=== PATIENT | female | born 1950 | race Caucasian/White ===

== ENCOUNTER 2021-02-26 15:38 | Emergency (ER) | payer MEDICARE, MEDICAID ==
[~2021-02-26] VITALS: Ht 160 cm; Wt 77.3 kg
[~2021-02-26 15:38] MED LIST: ALBU18HF2 INH; BUDE180A INH; BUSP10TA3 PO; CETI10TA15 PO; FLUO-213 PO; MECL-159 PO; NICO-687 TD; ONDA4TAB6 PO; SIMV-45 PO
[2021-02-26] MEDS ORDERED: predniSONE 20 mg tablet PO SCH ×2 (15:49→15:50)
[2021-02-26] MEDS ORDERED: prednisone 10mg tablet PO SCH (15:50)
--- NOTE | 2021-02-26 15:54 | NUR ---
pt to room, assumed care. pt receiving breathing tx
[2021-02-26 16:01] LABS: BASOPHILS % (AUTO) 0.8 % (0-1); EOSINOPHILS # (AUTO) 0.2 X10'3 (0-0.9); EOSINOPHILS % (AUTO) 2.5 % (0-6); HEMATOCRIT 35.5 % (35.0-45.0); HEMOGLOBIN 11.5 g/dl (12.0-16.0); LYMPHOCYTES # (AUTO) 1.2 X10'3 (1.1-4.8); LYMPHOCYTES % (AUTO) 17.6 % (21-51); MEAN CORPUSCULAR HGB CONC 32.3 g/dL (33.0-36.5); MEAN CORPUSCULAR VOLUME 86.6 FL (78-98); MEAN PLATELET VOLUME 8.7 FL (7.4-10.4); MONOCYTES # (AUTO) 0.7 X10'3 (0-0.9); MONOCYTES % (AUTO) 10.9 % (2-12); NEUTROPHILS # (AUTO) 4.5 X10'3 (1.8-7.7); NEUTROPHILS % (AUTO) 68.2 % (42-75); PLATELET COUNT 217 X10'3 (140-440); RED CELL DISTRIBUTION WIDTH 17.6 % (11.5-14.5); WHITE BLOOD COUNT 6.6 X10'3 (4.5-11.0)
[2021-02-26 16:14] LABS: ALBUMIN 3.1 G/DL (3.4-5.0); ANION GAP 9 (8-16); BLOOD UREA NITROGEN 23 MG/DL (7-18); BUN/CREATININE RATIO 16.3 (6.6-38.0); CALCIUM 8.2 MG/DL (8.5-10.1); CHLORIDE 108 MMOL/L (99-107); CREATININE 1.41 MG/DL (0.40-0.90); GLUCOSE 106 MG/DL (70-104); POTASSIUM 4.5 MMOL/L (3.5-5.1); SODIUM 140 MMOL/L (135-145); TOTAL CARBON DIOXIDE 23.5 MMOL/L (24-32); eGFR 37 ML/MIN
[2021-02-26] MEDS ORDERED: PRED20TA PO (16:50)
[2021-02-26 16:59] VITALS: BP 120/82
== END 2021-02-26 17:00 | disposition home or self-care (01) ==
LOC: ER 15:38
DX: J44.1 Chronic obstructive pulmonary disease with (acute) exacerbation (principal); F17.210 Nicotine dependence, cigarettes, uncomplicated; I11.0 Hypertensive heart disease with heart failure; I50.9 Heart failure, unspecified; E78.00 Pure hypercholesterolemia, unspecified; F32.9 Major depressive disorder, single episode, unspecified; R22.43 Localized swelling, mass and lump, lower limb, bilateral; Z90.49 Acquired absence of other specified parts of digestive tract; Z90.710 Acquired absence of both cervix and uterus; Z72.89 Other problems related to lifestyle; Z88.0 Allergy status to penicillin; Z88.5 Allergy status to narcotic agent; Z79.899 Other long term (current) drug therapy; Z99.81 Dependence on supplemental oxygen
CPT/HCPCS: 36415; 71045; 80048; 85025; 93005; 99285; 99406; J7512

== ENCOUNTER 2023-05-19 21:22 | Inpatient (IN) | payer MEDICARE, MEDICAID ==
[~2023-05-19] VITALS: Ht 167.6 cm; Wt 68.0 kg
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
[2023-05-20] MEDS ORDERED: ROSU20TA73 PO (01:48)
[2023-05-20] MEDS ORDERED: OMEP20CA16 PO (01:48)
[2023-05-20] MEDS ORDERED: BACL10TA2 PO (01:48)
[2023-05-20] MEDS ORDERED: ALEN70TA80 PO (01:48)
[2023-05-20] MEDS ORDERED: LISI1TAB49 PO (01:48)
[2023-05-20] MEDS ORDERED: CETI10TA14 PO (01:48)
[2023-05-20] MEDS ORDERED: OXYB5TAB16 PO (01:48)
[2023-05-20] MEDS ORDERED: ASPI-1397 PO (01:48)
[2023-05-20] MEDS ORDERED: IBUP-1985 PO (01:48)
[2023-05-20] MEDS ORDERED: FURO40TA4 PO (01:48)
[2023-05-20] MEDS ORDERED: ALBU90AE2 INH (01:48)
[2023-05-20] MEDS ORDERED: DICL100G59 TOP (01:48)
[2023-05-20] MEDS ORDERED: FLUT16SP26 BOTHNARES (01:49)
[2023-05-20] MEDS ORDERED: IPRA3AMP31 NEB (01:49)
[2023-05-20 02:03] LABS: BASOPHILS % (AUTO) 0.4 % (0-1); EOSINOPHILS # (AUTO) 0.1 X10'3 (0-0.9); EOSINOPHILS % (AUTO) 1.3 % (0-6); HEMOGLOBIN 13.3 g/dl (12.0-16.0); LYMPHOCYTES % (AUTO) 11.3 % (21-51); MEAN CORPUSCULAR HEMOGLOBIN 27.6 PG (27.0-31.0); MEAN CORPUSCULAR HGB CONC 32.3 g/dL (33.0-36.5); MEAN CORPUSCULAR VOLUME 85.3 FL (78-98); MEAN PLATELET VOLUME 9.2 FL (7.4-10.4); MONOCYTES # (AUTO) 0.8 X10'3 (0-0.9); MONOCYTES % (AUTO) 8.9 % (2-12); NEUTROPHILS # (AUTO) 6.9 X10'3 (1.8-7.7); NEUTROPHILS % (AUTO) 78.1 % (42-75); PLATELET COUNT 213 X10'3 (140-440); RED BLOOD COUNT 4.81 X10'6 (4.20-5.60); RED CELL DISTRIBUTION WIDTH 16.6 % (11.5-14.5); WHITE BLOOD COUNT 8.8 X10'3 (4.5-11.0)
[2023-05-20 02:04] LABS: BILIRUBIN,URINE NEGATIVE (Neg); CLARITY,URINE CLOUDY (Clear); GLUCOSE, URINE NEGATIVE (Neg); KETONES,URINE NEGATIVE (Neg); LEUKOCYTE ESTERASE ,URINE MODERATE (Neg); NITRITES, URINE POSITIVE (Neg); OCCULT BLOOD,URINE SMALL (Neg); PROTEIN,URINE TRACE mg/dl (Neg); UROBILINOGEN,URINE 0.2 E.U/dL (0.2-1.0)
[2023-05-20 02:05] LABS: COLOR,URINE STRAW (Yellow); UA COLLECTION TYPE CLN CATCH MIDSTREAM
[2023-05-20 02:10] LABS: BACTERIA,URINE 4+ /HPF (Neg); SQUAMOUS EPITHELIAL CELL,UR FEW /LPF (FEW); WBC,URINE TNTC /HPF (0-4)
[2023-05-20 02:11] LABS: TRANSITIONAL EPI CELLS,URINE FEW /HPF; WBC CLUMPS,URINE FEW /HPF (NEGATIVE)
[2023-05-20 02:17] LABS: ALANINE AMINOTRANSFERASE 26 U/L (12-78); ALBUMIN 3.6 G/DL (3.4-5.0); ALKALINE PHOSPHATASE 112 IU/L (46-116); ANION GAP 15 (8-16); ASPARTATE AMINO TRANSFERASE 63 U/L (10-37); BILIRUBIN,TOTAL 0.2 MG/DL (0.1-1.0); BLOOD UREA NITROGEN 91 MG/DL (7-18); BUN/CREATININE RATIO 32.9 (10.0-20.0); CALCIUM 9.5 MG/DL (8.5-10.1); CHLORIDE 97 MMOL/L (99-107); CREATININE 2.77 MG/DL (0.40-0.90); GLUCOSE 89 MG/DL (70-104); MAGNESIUM 1.9 MG/DL (1.5-2.4); POTASSIUM 4.8 MMOL/L (3.5-5.1); SODIUM 131 MMOL/L (135-145); TOTAL CARBON DIOXIDE 19.2 MMOL/L (24-32); TOTAL PROTEIN 7.2 G/DL (6.4-8.2); eCRCL 17 ML/MIN; eGFR 17 ML/MIN
[2023-05-20] MEDS ORDERED: CefTRIAXone/D5W-Rocephin 1gm 50 ML IV ONE (03:10)
[2023-05-20 03:51] LABS: URINE AMPHETAMINE SCREEN NEGATIVE (Neg); URINE BARBITUATE SCREEN NEGATIVE (Neg); URINE BENZODIAZEPINES SCREEN NEGATIVE (Neg); URINE CANNABINOID SCREEN NEGATIVE (Neg); URINE COCAINE SCREEN NEGATIVE (Neg); URINE METHADONE SCREEN NEGATIVE (Neg); URINE OPIATE SCREEN NEGATIVE (Neg); URINE PHENCYCLIDINE SCREEN NEGATIVE (Neg)
[2023-05-20] MEDS ORDERED: acetaminophen 650mg rectal suppository RC PRN (04:10)
[2023-05-20] MEDS ORDERED: bisacodyl 10mg suppository rectal RC PRN (04:10)
[2023-05-20] MEDS ORDERED: acetaminophen 325mg tablet PO PRN ×2 (04:10)
[2023-05-20] MEDS ORDERED: diphenhydrAMINE 25mg capsule PO PRN (04:10)
[2023-05-20] MEDS ORDERED: HYDROcodone/acetaminophen 5mg/325mg tablet PO PRN (04:10)
[2023-05-20] MEDS ORDERED: ondansetron/PF 4mg/2ml inj IV PRN (04:10)
[2023-05-20] MEDS ORDERED: HYDROcodone/acetaminophen 10/325mg tab PO PRN (04:10)
[2023-05-20] MEDS ORDERED: mag hydrox/Alum hydrox/simeth 30ml oral suspension PO PRN (04:10)
[2023-05-20] MEDS ORDERED: morphine 2 MG/ML inj. syringe IV PRN (04:10)
[2023-05-20] MEDS ORDERED: ipratropium/albuterol 3ml nebule NEB PRN (04:10)
[2023-05-20] MEDS ORDERED: ondansetron 4mg rapidly disintigrating tab PO PRN (04:10)
[2023-05-20] MEDS ORDERED: ringers solution, lacted 1,000 ML IV ONE (04:15)
[2023-05-20] MEDS: CefTRIAXone/D5W-Rocephin 1gm 50 ML IV SCH (04:16)
[2023-05-20] MEDS: normal saline 1000ml 1,000 ML IV SCH ×3 (04:32→21:29)
[2023-05-20 04:42] VITALS: PULSE 46; RESP 16; O2SAT 95
--- NOTE | 2023-05-20 06:01 | NUR ---
pt to ct
[2023-05-20] MEDS ORDERED: rocuronium 10mg/ml inj IV ONE (06:30)
[2023-05-20] MEDS ORDERED: etomidate 2mg/ml inj. IV ONE (06:30)
[2023-05-20] MEDS ORDERED: propofol 1000mg/100ml bottle 100 ML IV PRN (06:45)
[2023-05-20 08:05] LABS: APTT 31 SECONDS (22-32); PROTHROMBIN TIME 10.3 SECONDS (9.0-12.0)
[2023-05-20 08:18] LABS: CREATINE KINASE 826 U/L (26-192); LIPASE 182 U/L (73-393); PHOSPHORUS 5.6 MG/DL (2.3-4.5); PRO BRAIN NATRIURETIC PEPTIDE 530 PG/ML (0-125); THYROID STIMULATING HORMONE 0.69 ulU/ml (0.34-4.50)
--- NOTE | 2023-05-20 08:28 | NUR ---
cRITICAL LAB VALUE TROP 64 DR. DUMONT NOTIFIED
[2023-05-20 08:53] LABS: HEMOGLOBIN A1C 5.9 % (4.5-6.2)
[2023-05-20] MEDS: pantoprazole 40mg Tablet.DR PO SCH (10:09)
[2023-05-20] MEDS: heparin, porcine 5000 units/ml vial SQ SCH ×2 (10:10→20:36)
[2023-05-20] MEDS: docusate sod 100mg capsule PO SCH ×2 (10:10→20:12)
--- NOTE | 2023-05-20 12:45 | NUR ---
Relieving primary RN for lunch - patient has no needs at this time.
[2023-05-20 15:40] VITALS: PULSE 53; RESP 15; O2SAT 95
--- NOTE | 2023-05-20 18:42 | NUR ---
[facility], , manager social, Giulia Thomas
[2023-05-20 19:23] VITALS: PULSE 57; RESP 16; O2SAT 98
[2023-05-20 19:30] VITALS: PULSE 53; RESP 18
--- NOTE | 2023-05-20 20:57 | NUR ---
Patient in room ED 5. I have received report from ANA MARIA Landin and had the opportunity to ask questions and assume patient care.
--- NOTE | 2023-05-20 20:59 | NUR ---
PT IS LEAVING ER FLOOR AND HEADING UP TO ORTHO
[2023-05-20] MEDS ORDERED: temazepam 15mg capsule PO PRN (21:00)
--- NOTE | 2023-05-20 21:27 | NUR ---
pt brought to room 4021A via gurney by er staff. pt. is nonverbal at times. does not answer questions appropriately.
[2023-05-20 21:52] VITALS: BP 140/57; PULSE 56; RESP 16; TEMP 97.4; O2SAT 95
[2023-05-21 06:00] VITALS: BP 146/59; PULSE 57; RESP 16; TEMP 98.6; O2SAT 94
--- NOTE | 2023-05-21 06:11 | NUR ---
Problems reprioritized. Patient report given, questions answered & plan of care reviewed with MEG Castro.
--- NOTE | 2023-05-21 06:19 | NUR ---
Patient in room ORTHO 4021 A. I have received report from ANA MARIA Mejia and had the opportunity to ask questions and assume patient care.
[2023-05-21] MEDS: CefTRIAXone/D5W-Rocephin 1gm 50 ML IV SCH (07:35)
[2023-05-21 07:41] LABS: BASOPHILS # (AUTO) 0.1 X10'3 (0-0.2); EOSINOPHILS # (AUTO) 0.3 X10'3 (0-0.9); HEMOGLOBIN 12.4 g/dl (12.0-16.0); WHITE BLOOD COUNT 7.6 X10'3 (4.5-11.0)
[2023-05-21 07:47] LABS: ALANINE AMINOTRANSFERASE 20 U/L (12-78); ALBUMIN 2.9 G/DL (3.4-5.0); ALBUMIN/GLOBULIN RATIO 0.9 (1.1-1.5); ALKALINE PHOSPHATASE 88 IU/L (46-116); ANION GAP 10 (8-16); ASPARTATE AMINO TRANSFERASE 35 U/L (10-37); BILIRUBIN,TOTAL 0.2 MG/DL (0.1-1.0); BLOOD UREA NITROGEN 57 MG/DL (7-18); CALCIUM 9.3 MG/DL (8.5-10.1); CHLORIDE 106 MMOL/L (99-107); CHOL/HDL RATIO 3.2 (0.00-4.99); CHOLESTEROL 155 MG/DL (0-200); CREATININE 1.54 MG/DL (0.40-0.90); GLUCOSE 69 MG/DL (70-104); HDL CHOLESTEROL 48 MG/DL (35-60); LDL CHOLESTEROL 79 MG/DL (50-100); POTASSIUM 4.4 MMOL/L (3.5-5.1); SODIUM 138 MMOL/L (135-145); TOTAL CARBON DIOXIDE 22.5 MMOL/L (24-32); TOTAL PROTEIN 6.3 G/DL (6.4-8.2); TRIGLYCERIDES 116 MG/DL (20-135); eCRCL 31 ML/MIN; eGFR 33 ML/MIN
[2023-05-21 08:00] VITALS: RESP 16; O2SAT 94
[2023-05-21] MEDS: docusate sod 100mg capsule PO SCH ×2 (08:01→19:58)
[2023-05-21] MEDS: pantoprazole 40mg Tablet.DR PO SCH (08:01)
[2023-05-21] MEDS: heparin, porcine 5000 units/ml vial SQ SCH ×2 (08:02→19:58)
[2023-05-21 08:04] LABS: BASOPHILS % (AUTO) 1.1 % (0-1); EOSINOPHILS % (AUTO) 3.8 % (0-6); HEMATOCRIT 38.4 % (35.0-45.0); LYMPHOCYTES # (AUTO) 1.1 X10'3 (1.1-4.8); MEAN CORPUSCULAR HEMOGLOBIN 27.6 PG (27.0-31.0); MEAN CORPUSCULAR HGB CONC 32.4 g/dL (33.0-36.5); MEAN CORPUSCULAR VOLUME 85.1 FL (78-98); MEAN PLATELET VOLUME 9.8 FL (7.4-10.4); MONOCYTES # (AUTO) 0.7 X10'3 (0-0.9); MONOCYTES % (AUTO) 9.6 % (2-12); NEUTROPHILS # (AUTO) 5.4 X10'3 (1.8-7.7); NEUTROPHILS % (AUTO) 70.5 % (42-75); PLATELET COUNT 206 X10'3 (140-440); RED BLOOD COUNT 4.51 X10'6 (4.20-5.60); RED CELL DISTRIBUTION WIDTH 16.3 % (11.5-14.5)
[2023-05-21] MEDS: normal saline 1000ml 1,000 ML IV SCH ×2 (10:22→19:51)
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
--- NOTE | 2023-05-21 14:56 | NUR ---
OFFENDER EMPLOYMENT SPECIALIST documentation: I have reviewed and agree with all interventions, assessments performed and documented by Gloria Flowers LVN .
--- NOTE | 2023-05-21 16:17 | NUR ---
I.R team performed the parenthesis with no result of extracting fluid reported by them. It was noted it was all stool in abd built up. Paged Dr. Nugent & the resident for a order for an enema or suppository. Will await. Addendum: 05/21/23 at 1621 by Gloria CHANEYN WRONG PATIENT
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
[2023-05-21 18:00] VITALS: BP 151/76; PULSE 79; RESP 18; TEMP 97.5; O2SAT 90
--- NOTE | 2023-05-21 19:04 | NUR ---
Problems reprioritized. Patient report given, questions answered & plan of care reviewed with maintenance technician 2nd shift nurse.
[2023-05-21 19:41] VITALS: PULSE 62; RESP 16; O2SAT 92
[2023-05-21 22:00] VITALS: BP 157/85; PULSE 65; RESP 21; TEMP 98.2; O2SAT 89
[2023-05-21] MEDS ORDERED: fluticasone nasal spray 16GM bottle NS PRN (22:30)
[2023-05-21] MEDS: aspirin 81mg, enteric-coated 1 TAB TABLET.DR PO SCH (22:30)
[2023-05-22] VITALS (9 sets, daily range): BP systolic 131–184; BP diastolic 68–96; PULSE 59–75; RESP 15–20; TEMP 97.2–97.7; O2SAT 91–98
--- NOTE | 2023-05-22 03:18 | NUR ---
Agree with Gretel WEAVER assessment except where I documented my findings.
[2023-05-22 03:42] LABS: TOTAL PROTEIN,URINE RANDOM 22.9 MG/DL
[2023-05-22] MEDS: normal saline 1000ml 1,000 ML IV SCH ×2 (05:36→16:19)
--- NOTE | 2023-05-22 06:08 | NUR ---
Patient in room ORTHO 4021. I have received report from Gretel WEAVER and had the opportunity to ask questions and assume patient care.Patient resting with eyes closed
--- NOTE | 2023-05-22 06:09 | NUR ---
Problems reprioritized. Patient report given, questions answered & plan of care reviewed with JOLENE RODGERS.
[2023-05-22 06:46] LABS: BASOPHILS # (AUTO) 0.1 X10'3 (0-0.2); BASOPHILS % (AUTO) 0.8 % (0-1); EOSINOPHILS # (AUTO) 0.2 X10'3 (0-0.9); EOSINOPHILS % (AUTO) 3.7 % (0-6); HEMATOCRIT 38.7 % (35.0-45.0); HEMOGLOBIN 12.5 g/dl (12.0-16.0); LYMPHOCYTES # (AUTO) 0.9 X10'3 (1.1-4.8); MEAN CORPUSCULAR HEMOGLOBIN 27.5 PG (27.0-31.0); MEAN CORPUSCULAR HGB CONC 32.3 g/dL (33.0-36.5); MEAN CORPUSCULAR VOLUME 85.1 FL (78-98); MEAN PLATELET VOLUME 9.4 FL (7.4-10.4); MONOCYTES # (AUTO) 0.7 X10'3 (0-0.9); MONOCYTES % (AUTO) 11.1 % (2-12); NEUTROPHILS # (AUTO) 4.4 X10'3 (1.8-7.7); NEUTROPHILS % (AUTO) 70.4 % (42-75); PLATELET COUNT 212 X10'3 (140-440); RED BLOOD COUNT 4.55 X10'6 (4.20-5.60); RED CELL DISTRIBUTION WIDTH 16.7 % (11.5-14.5); WHITE BLOOD COUNT 6.3 X10'3 (4.5-11.0)
[2023-05-22 07:00] LABS: ALANINE AMINOTRANSFERASE 19 U/L (12-78); ALBUMIN 2.9 G/DL (3.4-5.0); ALBUMIN/GLOBULIN RATIO 0.8 (1.1-1.5); ALKALINE PHOSPHATASE 84 IU/L (46-116); ANION GAP 10 (8-16); ASPARTATE AMINO TRANSFERASE 27 U/L (10-37); BILIRUBIN,TOTAL 0.2 MG/DL (0.1-1.0); BLOOD UREA NITROGEN 38 MG/DL (7-18); BUN/CREATININE RATIO 30.4 (10.0-20.0); CALCIUM 9.5 MG/DL (8.5-10.1); CHLORIDE 109 MMOL/L (99-107); CREATININE 1.25 MG/DL (0.40-0.90); GLUCOSE 86 MG/DL (70-104); POTASSIUM 4.6 MMOL/L (3.5-5.1); SODIUM 142 MMOL/L (135-145); TOTAL CARBON DIOXIDE 22.6 MMOL/L (24-32); TOTAL PROTEIN 6.4 G/DL (6.4-8.2); eCRCL 38 ML/MIN; eGFR 42 ML/MIN
[2023-05-22] MEDS: ipratropium/albuterol 3ml nebule NEB SCH ×4 (07:00→19:00)
[2023-05-22] MEDS: pantoprazole 40mg Tablet.DR PO SCH ×2 (07:30)
[2023-05-22] MEDS: CefTRIAXone/D5W-Rocephin 1gm 50 ML IV SCH (07:44)
[2023-05-22] MEDS: docusate sod 100mg capsule PO SCH ×2 (08:00→19:31)
[2023-05-22] MEDS: atorvastatin 20mg tablet PO SCH (08:00)
[2023-05-22] MEDS: oxybutynin 5mg tablet PO SCH ×2 (08:00→19:31)
[2023-05-22] MEDS: heparin, porcine 5000 units/ml vial SQ SCH ×2 (08:00→19:31)
[2023-05-22] MEDS: aspirin 81mg, enteric-coated 1 TAB TABLET.DR PO SCH (08:00)
[2023-05-22] MEDS ORDERED: levoFLOXACIN 500mg tablet PO SCH (11:00)
--- NOTE | 2023-05-22 11:38 | NUR ---
Contacted patients Niece who states that patient lives at [facility] in [place] [phone]. Which is an assisted living facility. Spoke to PATRICIO will put in social service consult. Per Patients Niece the last time patient was confused it was because she was not getting her medications correctly at home.
--- NOTE | 2023-05-22 12:04 | NUR ---
Per Dr Eduardo patient to start PO Levaquin tomorrow since she got Rocephin today. Also, Dr Eduardo aware patient is refusing all PO medications
[2023-05-22] MEDS: levoFLOXACIN 250mg tablet PO SCH (14:33)
--- NOTE | 2023-05-22 18:22 | NUR ---
Problems reprioritized. Patient report given, questions answered & plan of care reviewed with Gretel WEAVER.
--- NOTE | 2023-05-22 21:00 | NUR ---
Agree with Gretel WEAVER assessment except where I documented my findings.
[2023-05-23] VITALS (12 sets, daily range): BP systolic 109–147; BP diastolic 63–100; PULSE 52–75; RESP 15–19; TEMP 98.2–99; O2SAT 92–98
[2023-05-23] MEDS: normal saline 1000ml 1,000 ML IV SCH ×3 (00:42→22:02)
[2023-05-23 02:45] LABS: ABG BASE EXCESS -9.7 mmol/L (-2.0-2.0); ABG HCO3 17.6 mmol/L (22.0-26.0); ABG OXYGEN SATURATION 91.2 % (94-97); ABG PCO2 (T) 43.5 mmHg (32.0-45.0); ABG PH (T) 7.225 (7.350-7.450); ABG PO2 (T) 69.2 mmHg (75.0-100.0); ALLEN'S TEST Yes; FCOHb 0.3 % (0.0-3.9); FHHb 8.7 % (0.0-5.0); FLOW 2 L/min; FMetHb 0.4 % (0.0-1.5); FO2Hb 90.6 % (94-97); MODE NC; PATIENT TEMPERATURE 37.1
[2023-05-23 04:56] LABS: ALANINE AMINOTRANSFERASE 17 U/L (12-78); ALBUMIN/GLOBULIN RATIO 0.9 (1.1-1.5); ALKALINE PHOSPHATASE 86 IU/L (46-116); ANION GAP 11 (8-16); ASPARTATE AMINO TRANSFERASE 20 U/L (10-37); BILIRUBIN,TOTAL 0.3 MG/DL (0.1-1.0); BLOOD UREA NITROGEN 24 MG/DL (7-18); BUN/CREATININE RATIO 17.9 (10.0-20.0); CALCIUM 9.7 MG/DL (8.5-10.1); CHLORIDE 108 MMOL/L (99-107); CREATININE 1.34 MG/DL (0.40-0.90); GLUCOSE 90 MG/DL (70-104); POTASSIUM 4.6 MMOL/L (3.5-5.1); SODIUM 143 MMOL/L (135-145); TOTAL CARBON DIOXIDE 24.2 MMOL/L (24-32); TOTAL PROTEIN 6.4 G/DL (6.4-8.2); eCRCL 36 ML/MIN; eGFR 39 ML/MIN
[2023-05-23 05:04] LABS: CREATINE KINASE 124 U/L (26-192); MAGNESIUM 1.5 MG/DL (1.5-2.4); PHOSPHORUS 2.8 MG/DL (2.3-4.5); PRO BRAIN NATRIURETIC PEPTIDE 2555 PG/ML (0-125)
[2023-05-23 05:10] LABS: BASOPHILS # (AUTO) 0.1 X10'3 (0-0.2); BASOPHILS % (AUTO) 0.6 % (0-1); EOSINOPHILS # (AUTO) 0.1 X10'3 (0-0.9); EOSINOPHILS % (AUTO) 0.9 % (0-6); HEMATOCRIT 38.1 % (35.0-45.0); HEMOGLOBIN 12.6 g/dl (12.0-16.0); LYMPHOCYTES # (AUTO) 0.8 X10'3 (1.1-4.8); LYMPHOCYTES % (AUTO) 8.7 % (21-51); MEAN CORPUSCULAR HEMOGLOBIN 27.7 PG (27.0-31.0); MEAN PLATELET VOLUME 9.1 FL (7.4-10.4); MONOCYTES # (AUTO) 0.9 X10'3 (0-0.9); MONOCYTES % (AUTO) 10.7 % (2-12); NEUTROPHILS # (AUTO) 6.9 X10'3 (1.8-7.7); NEUTROPHILS % (AUTO) 79.1 % (42-75); PLATELET COUNT 224 X10'3 (140-440); RED BLOOD COUNT 4.53 X10'6 (4.20-5.60); RED CELL DISTRIBUTION WIDTH 16.2 % (11.5-14.5); WHITE BLOOD COUNT 8.7 X10'3 (4.5-11.0)
--- NOTE | 2023-05-23 06:18 | NUR ---
Problems reprioritized. Patient report given, questions answered & plan of care reviewed with KATHLEEN RODGERS.
[2023-05-23] MEDS: ipratropium/albuterol 3ml nebule NEB SCH ×4 (07:04→20:27)
[2023-05-23] MEDS: pantoprazole 40mg Tablet.DR PO SCH ×2 (07:30)
[2023-05-23] MEDS: oxybutynin 5mg tablet PO SCH ×2 (08:00→21:45)
[2023-05-23] MEDS: heparin, porcine 5000 units/ml vial SQ SCH ×2 (08:00→21:45)
[2023-05-23] MEDS: docusate sod 100mg capsule PO SCH ×2 (08:00→21:45)
[2023-05-23] MEDS: aspirin 81mg, enteric-coated 1 TAB TABLET.DR PO SCH (08:00)
[2023-05-23] MEDS: atorvastatin 20mg tablet PO SCH (08:00)
--- NOTE | 2023-05-23 08:39 | NUR ---
ID: [id number] MESSAGE: WOOL HANDLER called on [id number]. Seizure activity it seems. No Ativan ordered. Ileana [id number]
--- NOTE | 2023-05-23 08:53 | NUR ---
0826 - aide witnessed a seizure, called for help, i entered room and patient still having seizure, i called a rapid and respiratory and icu nurse came to floor, nurse paged hospitalist and icu nurse paged hospitalist, nurse paged neurologist, neurologist called back to have me order a MRI, EEG, 1000mg iv keppra x one and 750mg iv keppra bid, hospitalist aware of situation and hospitalist aware that nursing staff is following neurologist recommendations, continue to monitor patient
[2023-05-23] MEDS ORDERED: levetiracetam inj 1,000 MG in normal saline 100ml IV soln 90 ML IV ONE (09:30)
[2023-05-23] MEDS: levoFLOXACIN 250mg tablet PO SCH (11:00)
[2023-05-23 17:46] LABS: BILIRUBIN,URINE NEGATIVE (Neg); CLARITY,URINE SLIGHTLY CLOUDY (Clear); COLOR,URINE YELLOW (Yellow); GLUCOSE, URINE NEGATIVE (Neg); KETONES,URINE 15 mg/dl (Neg); LEUKOCYTE ESTERASE ,URINE MODERATE (Neg); NITRITES, URINE NEGATIVE (Neg); OCCULT BLOOD,URINE LARGE (Neg); PROTEIN,URINE 100 mg/dl (Neg); UROBILINOGEN,URINE 0.2 E.U/dL (0.2-1.0)
[2023-05-23 17:52] LABS: UA COLLECTION TYPE NON-SPECIFIED
[2023-05-23 17:56] LABS: BACTERIA,URINE 1+ /HPF (Neg); SQUAMOUS EPITHELIAL CELL,UR MODERATE /LPF (FEW)
[2023-05-23] MEDS: levetiracetam inj 750 MG in normal saline 100ml IV soln 100 ML IV SCH (21:43)
[2023-05-24] VITALS (11 sets, daily range): BP systolic 102–145; BP diastolic 64–83; PULSE 52–88; RESP 15–20; TEMP 98–98.7; O2SAT 92–98
--- NOTE | 2023-05-24 06:36 | NUR ---
Problems reprioritized. Patient report given, questions answered & plan of care reviewed with ANA MARIA BRINK.
[2023-05-24 06:39] LABS: BASOPHILS % (AUTO) 0.7 % (0-1); EOSINOPHILS # (AUTO) 0.3 X10'3 (0-0.9); EOSINOPHILS % (AUTO) 3.8 % (0-6); HEMATOCRIT 33.3 % (35.0-45.0); HEMOGLOBIN 10.8 g/dl (12.0-16.0); LYMPHOCYTES # (AUTO) 1.2 X10'3 (1.1-4.8); LYMPHOCYTES % (AUTO) 17.7 % (21-51); MEAN CORPUSCULAR HEMOGLOBIN 27.6 PG (27.0-31.0); MEAN CORPUSCULAR HGB CONC 32.5 g/dL (33.0-36.5); MEAN CORPUSCULAR VOLUME 84.9 FL (78-98); MEAN PLATELET VOLUME 8.6 FL (7.4-10.4); MONOCYTES # (AUTO) 0.9 X10'3 (0-0.9); MONOCYTES % (AUTO) 12.5 % (2-12); NEUTROPHILS # (AUTO) 4.6 X10'3 (1.8-7.7); NEUTROPHILS % (AUTO) 65.3 % (42-75); PLATELET COUNT 183 X10'3 (140-440); RED BLOOD COUNT 3.92 X10'6 (4.20-5.60); RED CELL DISTRIBUTION WIDTH 16.2 % (11.5-14.5)
--- NOTE | 2023-05-24 06:42 | NUR ---
Patient in room ORTHO 4021. I have received report from LINDA RODGERS and had the opportunity to ask questions and assume patient care.
[2023-05-24 06:53] LABS: ALANINE AMINOTRANSFERASE 16 U/L (12-78); ALBUMIN 2.5 G/DL (3.4-5.0); ALBUMIN/GLOBULIN RATIO 0.9 (1.1-1.5); ALKALINE PHOSPHATASE 72 IU/L (46-116); ANION GAP 10 (8-16); ASPARTATE AMINO TRANSFERASE 19 U/L (10-37); BILIRUBIN,TOTAL 0.3 MG/DL (0.1-1.0); BLOOD UREA NITROGEN 15 MG/DL (7-18); BUN/CREATININE RATIO 13.5 (10.0-20.0); CALCIUM 8.3 MG/DL (8.5-10.1); CHLORIDE 110 MMOL/L (99-107); CREATININE 1.11 MG/DL (0.40-0.90); GLUCOSE 71 MG/DL (70-104); POTASSIUM 3.4 MMOL/L (3.5-5.1); SODIUM 144 MMOL/L (135-145); TOTAL CARBON DIOXIDE 23.8 MMOL/L (24-32); TOTAL PROTEIN 5.4 G/DL (6.4-8.2); eCRCL 43 ML/MIN; eGFR 48 ML/MIN
[2023-05-24] MEDS: ipratropium/albuterol 3ml nebule NEB SCH ×4 (07:16→20:33)
[2023-05-24] MEDS: pantoprazole 40mg Tablet.DR PO SCH ×2 (07:30→08:03)
[2023-05-24] MEDS: atorvastatin 20mg tablet PO SCH (08:03)
[2023-05-24] MEDS: docusate sod 100mg capsule PO SCH ×2 (08:03→20:35)
[2023-05-24] MEDS: levetiracetam inj 750 MG in normal saline 100ml IV soln 100 ML IV SCH ×2 (08:03→20:34)
[2023-05-24] MEDS: oxybutynin 5mg tablet PO SCH ×2 (08:04→20:35)
[2023-05-24] MEDS: heparin, porcine 5000 units/ml vial SQ SCH ×2 (08:04→20:45)
[2023-05-24] MEDS: aspirin 81mg, enteric-coated 1 TAB TABLET.DR PO SCH (08:04)
[2023-05-24] MEDS: normal saline 1000ml 1,000 ML IV SCH ×2 (09:00→18:10)
[2023-05-24] MEDS ORDERED: magnesium 2GM in 50ml NS 50 ML IV PRN (10:50)
[2023-05-24] MEDS ORDERED: magnesium 4gm in 100ml NS 100 ML IV PRN (10:50)
[2023-05-24] MEDS ORDERED: potassium Cl 40MEQ/1/2NS 520ml 520 ML IV PRN (10:50)
[2023-05-24] MEDS ORDERED: potassium Cl 20 mEq SR tablet PO PRN ×2 (10:50)
--- NOTE | 2023-05-24 11:01 | NUR ---
Olayinka Consult: Davin Bhagat 12 w/ no open skin areas per RN skin assessment in EMR. Addendum: 05/24/23 at [address] Amended: Links added.
[2023-05-24] MEDS ORDERED: POTASSIUM BICARB 20meq eff tab 20 MEQ TABLET.EFF PO PRN (11:30)
[2023-05-24] MEDS: levoFLOXACIN 250mg tablet PO SCH (12:05)
[2023-05-24] MEDS: POTASSIUM BICARB 20meq eff tab 20 MEQ TABLET.EFF PO PRN ×2 (12:06→21:51)
[2023-05-24 12:40] LABS: MAGNESIUM 1.3 MG/DL (1.5-2.4)
--- NOTE | 2023-05-24 13:18 | NUR ---
Page Sent PAGER ID: [phone] MESSAGE: [phone] a Heafer, pt has a low mg 1.3. replacement is already ordered. will replace per protocol. santa [phone]
--- NOTE | 2023-05-24 14:57 | NUR ---
attempted to admin pt k and mag replacement, pt is currently not want to taking her medication this time, continue to educate and to monitor
--- NOTE | 2023-05-24 16:15 | NUR ---
PRESSURE ULCER EDUCATION: DEFINITION: A pressure ulcer is an area of skin that breaks down when you stay in one position too long. The constant pressure against the skin reduces the blood flow to that area and the affected tissue dies. CAUSES: "Being bedridden or in a wheelchair "Fragile skin "Having a chronic condition, such as diabetes or vascular disease "Inability to move certain parts of your body without assistance "Older age "Incontinence of urine or stool SYMPTOMS: "A reddened area that DOES NOT turn white when pressed on - this can be the beginning of a pressure ulcer "A blister, deep sore or a crater - these can be advanced pressure ulcers FIRST AID: "Relieve the pressure on this area "Keep the area clean and dry "Call your primary doctor if you see any of the above symptoms "DO NOT massage the area "DO NOT use a donut shaped or ring shaped pillow- these actually interfere with the blood flow and cause complications PREVENTION: "Check for pressure ulcers everyday "Change position at least every two hours to relieve pressure "Use items that help relieve pressure- pillows, sheepskin, foam padding, and powders. "Keep skin clean and dry "Eat healthy well balanced meals "Exercise daily IF YOU SEE ANY OF THESE SYMPTOMS WHILE IN THE HOSPITAL - TELL YOUR NURSE IMMEDIATELY. IF YOU SEE ANY OF THESE SYMPTOMS WHILE AT HOME OR HAVE ANY QUESTIONS OR CONCERNS ABOUT PRESSURE ULCERS - CALL YOUR PRIMARY DOCTOR IMMEDIATELY. Addendum: 05/24/23 at 1615 by Jamila Wylie LVN Amended: Links added.
--- NOTE | 2023-05-24 18:17 | NUR ---
Page Sent PAGER ID: [phone] MESSAGE: [phone] abraham, pt refused mg and k replacement offered. pt also pulled IV out unsure if she will let me put the IV back in. santa [phone]
[2023-05-24] MEDS: K and/or MAG REPLACEMENT MC SCH (20:00)
[2023-05-24] MEDS: magnesium Cl slow-release 64mg tablet PO PRN (21:52)
[2023-05-25] VITALS (12 sets, daily range): BP systolic 137–149; BP diastolic 79–96; PULSE 59–85; RESP 15–18; TEMP 97.5–97.7; O2SAT 91–96
[2023-05-25] MEDS: normal saline 1000ml 1,000 ML IV SCH ×3 (01:50→21:02)
--- NOTE | 2023-05-25 02:43 | NUR ---
Problems reprioritized. Patient report given, questions answered & plan of care reviewed with PAUL RODGERS.
--- NOTE | 2023-05-25 03:05 | NUR ---
Patient in room ORTHO 4021. I have received report from Jolene RODGERS and had the opportunity to ask questions and assume patient care.
[2023-05-25 06:07] LABS: BASOPHILS % (AUTO) 0.4 % (0-1); EOSINOPHILS # (AUTO) 0.5 X10'3 (0-0.9); EOSINOPHILS % (AUTO) 5.7 % (0-6); HEMATOCRIT 39.1 % (35.0-45.0); HEMOGLOBIN 12.5 g/dl (12.0-16.0); LYMPHOCYTES # (AUTO) 0.9 X10'3 (1.1-4.8); LYMPHOCYTES % (AUTO) 10.9 % (21-51); MEAN CORPUSCULAR HEMOGLOBIN 27.3 PG (27.0-31.0); MEAN CORPUSCULAR HGB CONC 31.8 g/dL (33.0-36.5); MEAN CORPUSCULAR VOLUME 85.6 FL (78-98); MEAN PLATELET VOLUME 8.7 FL (7.4-10.4); MONOCYTES # (AUTO) 0.8 X10'3 (0-0.9); MONOCYTES % (AUTO) 9.4 % (2-12); NEUTROPHILS # (AUTO) 6.3 X10'3 (1.8-7.7); NEUTROPHILS % (AUTO) 73.6 % (42-75); PLATELET COUNT 175 X10'3 (140-440); RED BLOOD COUNT 4.57 X10'6 (4.20-5.60); RED CELL DISTRIBUTION WIDTH 16.6 % (11.5-14.5); WHITE BLOOD COUNT 8.6 X10'3 (4.5-11.0)
[2023-05-25 06:36] LABS: ALANINE AMINOTRANSFERASE 16 U/L (12-78); ALBUMIN 2.8 G/DL (3.4-5.0); ALBUMIN/GLOBULIN RATIO 0.8 (1.1-1.5); ALKALINE PHOSPHATASE 82 IU/L (46-116); ANION GAP 10 (8-16); ASPARTATE AMINO TRANSFERASE 20 U/L (10-37); BILIRUBIN,TOTAL 0.3 MG/DL (0.1-1.0); BLOOD UREA NITROGEN 12 MG/DL (7-18); BUN/CREATININE RATIO 11.2 (10.0-20.0); CALCIUM 8.7 MG/DL (8.5-10.1); CHLORIDE 108 MMOL/L (99-107); CREATININE 1.07 MG/DL (0.40-0.90); GLUCOSE 87 MG/DL (70-104); MAGNESIUM 1.2 MG/DL (1.5-2.4); SODIUM 143 MMOL/L (135-145); TOTAL CARBON DIOXIDE 25.1 MMOL/L (24-32); TOTAL PROTEIN 6.2 G/DL (6.4-8.2); eCRCL 44 ML/MIN; eGFR 50 ML/MIN
[2023-05-25] MEDS: ipratropium/albuterol 3ml nebule NEB SCH ×4 (06:56→19:34)
[2023-05-25] MEDS: pantoprazole 40mg Tablet.DR PO SCH ×2 (07:24→07:38)
[2023-05-25] MEDS: docusate sod 100mg capsule PO SCH ×2 (07:37→20:52)
[2023-05-25] MEDS: levetiracetam inj 750 MG in normal saline 100ml IV soln 100 ML IV SCH ×2 (07:37→20:50)
[2023-05-25] MEDS: atorvastatin 20mg tablet PO SCH (07:37)
[2023-05-25] MEDS: aspirin 81mg, enteric-coated 1 TAB TABLET.DR PO SCH (07:38)
[2023-05-25] MEDS: oxybutynin 5mg tablet PO SCH ×2 (07:38→20:52)
[2023-05-25] MEDS: heparin, porcine 5000 units/ml vial SQ SCH ×2 (07:40→20:53)
[2023-05-25] MEDS: K and/or MAG REPLACEMENT MC SCH ×2 (07:54→20:00)
--- NOTE | 2023-05-25 09:24 | NUR ---
Problems reprioritized. Patient report given, questions answered & plan of care reviewed with Sin WEAVER.
[2023-05-25] MEDS: levoFLOXACIN 250mg tablet PO SCH (11:20)
--- NOTE | 2023-05-25 12:57 | NUR ---
Initial: Pt admit for generalized weakness, altered levels of consciousness, complicated UTI, acute renal failure, and hyponatremia per EMR. Pt not appropriate for interview due to metabolic encephalopathy diagnosis, documented confused and Aox2 per EMR. Pt is currently on regular diet with average PO intake 21% x 12 meals including 3 refused meals which met about 31% of estimated kcal needs and 34% of protein needs. Recommend adding Ensure Enlive TIDWM to better meet nutritional needs; physician notified. KAYLEEM on 05/21 receiving bowel care per EMR. Will continue to monitor and make recommendations as appropriate. Recommendations: 1.continue regular diet 2.Ensure Enlive TID; pending physician approval in EMR 3.routine bowel care 4.weekly wts Addendum: 05/25/23 at [address] Amended: Links added.
--- NOTE | 2023-05-25 17:00 | NUR ---
I have reviewed and agree with interventions, assessments, and documentation by Casi Sandoval LVN, & Ita Duff LVN.
--- NOTE | 2023-05-25 19:31 | NUR ---
Patient in room ORTHO 4021. I have received report from Cleo RN and had the opportunity to ask questions and assume patient care.
[2023-05-25] MEDS: magnesium Cl slow-release 64mg tablet PO PRN (21:08)
[2023-05-26] VITALS (14 sets, daily range): BP systolic 110–168; BP diastolic 74–105; PULSE 68–111; RESP 16–20; TEMP 97.8–98.9; O2SAT 94–97
--- NOTE | 2023-05-26 04:02 | NUR ---
103January RN resumed care
[2023-05-26] MEDS: ipratropium/albuterol 3ml nebule NEB SCH ×4 (07:06→19:39)
[2023-05-26] MEDS: pantoprazole 40mg Tablet.DR PO SCH ×2 (07:30→08:24)
[2023-05-26 07:33] LABS: MAGNESIUM 1.3 MG/DL (1.5-2.4); POTASSIUM 3.8 MMOL/L (3.5-5.1)
[2023-05-26] MEDS: K and/or MAG REPLACEMENT MC SCH ×2 (08:00→19:33)
[2023-05-26] MEDS: lactose-reduced food (Ensure Enlive) - 237ml bottle PO SCH ×5 (08:00→18:00)
[2023-05-26] MEDS: oxybutynin 5mg tablet PO SCH ×2 (08:30→20:02)
[2023-05-26] MEDS: aspirin 81mg, enteric-coated 1 TAB TABLET.DR PO SCH (08:30)
[2023-05-26] MEDS: atorvastatin 20mg tablet PO SCH (08:30)
[2023-05-26] MEDS: docusate sod 100mg capsule PO SCH ×2 (08:30→20:02)
[2023-05-26] MEDS: heparin, porcine 5000 units/ml vial SQ SCH ×2 (08:31→20:01)
[2023-05-26] MEDS: normal saline 1000ml 1,000 ML IV SCH ×2 (08:45→20:23)
[2023-05-26] MEDS: levetiracetam inj 750 MG in normal saline 100ml IV soln 100 ML IV SCH (09:16)
[2023-05-26] MEDS: levoFLOXACIN 250mg tablet PO SCH (16:05)
--- NOTE | 2023-05-26 18:00 | NUR ---
I have reviewed and agree with interventions, assessments, and documentation by Ita Duff LVN.
--- NOTE | 2023-05-26 19:04 | NUR ---
Patient in room ORTHO 4021. I have received report from SAMMY WEAVER and had the opportunity to ask questions and assume patient care.
[2023-05-26] MEDS: magnesium Cl slow-release 64mg tablet PO PRN (20:02)
[2023-05-26] MEDS: levetiracetam 250mg tablet PO SCH (20:03)
[2023-05-27] VITALS (12 sets, daily range): BP systolic 122–170; BP diastolic 59–98; PULSE 69–89; RESP 16–18; TEMP 96.8–97.9; O2SAT 94–98
--- NOTE | 2023-05-27 06:29 | NUR ---
Problems reprioritized. Patient report given, questions answered & plan of care reviewed with KELVIN WEAVER.
[2023-05-27 06:49] LABS: MAGNESIUM 1.3 MG/DL (1.5-2.4); POTASSIUM 4.4 MMOL/L (3.5-5.1)
[2023-05-27] MEDS: pantoprazole 40mg Tablet.DR PO SCH ×2 (07:30→08:59)
[2023-05-27] MEDS: ipratropium/albuterol 3ml nebule NEB SCH ×4 (07:52→20:17)
[2023-05-27] MEDS: lactose-reduced food (Ensure Enlive) - 237ml bottle PO SCH ×3 (08:00→18:22)
[2023-05-27] MEDS ORDERED: LORazepam 2 mg/ml vial IV ONE (08:45)
[2023-05-27] MEDS: docusate sod 100mg capsule PO SCH ×2 (08:58→20:51)
[2023-05-27] MEDS: heparin, porcine 5000 units/ml vial SQ SCH ×2 (08:59→20:52)
[2023-05-27] MEDS: aspirin 81mg, enteric-coated 1 TAB TABLET.DR PO SCH (08:59)
[2023-05-27] MEDS: atorvastatin 20mg tablet PO SCH (08:59)
[2023-05-27] MEDS: oxybutynin 5mg tablet PO SCH ×2 (08:59→20:51)
[2023-05-27] MEDS: levetiracetam 250mg tablet PO SCH ×2 (08:59→20:51)
[2023-05-27] MEDS: magnesium Cl slow-release 64mg tablet PO PRN (09:07)
[2023-05-27] MEDS: magnesium hydroxide 30ml (MOM) UD suspension PO PRN (09:07)
[2023-05-27] MEDS: K and/or MAG REPLACEMENT MC SCH ×2 (09:12→20:43)
[2023-05-27] MEDS: levoFLOXACIN 250mg tablet PO SCH (11:58)
[2023-05-27] MEDS: normal saline 1000ml 1,000 ML IV SCH (11:59)
[2023-05-27] MEDS ORDERED: LORazepam 1 MG tablet PO PRN (16:10)
[2023-05-27] MEDS: baclofen 10mg tablet PO SCH (16:54)
--- NOTE | 2023-05-27 18:42 | NUR ---
Patient in room ORTHO 4021. I have received report from KELVIN WEAVER and had the opportunity to ask questions and assume patient care.
--- NOTE | 2023-05-27 19:45 | NUR ---
Took over care of pt from Prudence RN at this time.
[2023-05-27] MEDS ORDERED: magnesium 4gm in 100ml NS 100 ML IV PRN (20:50)
[2023-05-27] MEDS ORDERED: magnesium Cl slow-release 64mg tablet PO PRN (20:50)
[2023-05-27] MEDS ORDERED: magnesium 2GM in 50ml NS 50 ML IV PRN (20:50)
[2023-05-28] VITALS (8 sets, daily range): BP systolic 93–96; BP diastolic 50–66; PULSE 64–99; RESP 18–24; TEMP 97.1–97.9; O2SAT 80–99
[2023-05-28] MEDS: normal saline 1000ml 1,000 ML IV SCH (01:07)
--- NOTE | 2023-05-28 06:42 | NUR ---
Patient in room ORTHO 4021. I have received report from Iris and had the opportunity to ask questions and assume patient care.
--- NOTE | 2023-05-28 06:49 | NUR ---
Problems reprioritized. Patient report given, questions answered & plan of care reviewed with Kady RODGERS.
[2023-05-28] MEDS: ipratropium/albuterol 3ml nebule NEB SCH ×3 (07:16→14:36)
[2023-05-28] MEDS: K and/or MAG REPLACEMENT MC SCH (07:20)
[2023-05-28] MEDS: pantoprazole 40mg Tablet.DR PO SCH ×2 (07:20→08:35)
[2023-05-28 07:53] LABS: BASOPHILS % (AUTO) 0.5 % (0-1); EOSINOPHILS # (AUTO) 0.4 X10'3 (0-0.9); EOSINOPHILS % (AUTO) 4.7 % (0-6); HEMATOCRIT 37.2 % (35.0-45.0); HEMOGLOBIN 11.8 g/dl (12.0-16.0); LYMPHOCYTES # (AUTO) 0.8 X10'3 (1.1-4.8); LYMPHOCYTES % (AUTO) 9.7 % (21-51); MEAN CORPUSCULAR HEMOGLOBIN 27.6 PG (27.0-31.0); MEAN CORPUSCULAR HGB CONC 31.8 g/dL (33.0-36.5); MEAN CORPUSCULAR VOLUME 86.6 FL (78-98); MEAN PLATELET VOLUME 9.1 FL (7.4-10.4); MONOCYTES # (AUTO) 0.8 X10'3 (0-0.9); MONOCYTES % (AUTO) 9.7 % (2-12); NEUTROPHILS % (AUTO) 75.4 % (42-75); PLATELET COUNT 167 X10'3 (140-440); RED CELL DISTRIBUTION WIDTH 16.7 % (11.5-14.5); WHITE BLOOD COUNT 7.9 X10'3 (4.5-11.0)
[2023-05-28 07:59] LABS: ALANINE AMINOTRANSFERASE 16 U/L (12-78); ALBUMIN 2.5 G/DL (3.4-5.0); ALBUMIN/GLOBULIN RATIO 0.7 (1.1-1.5); ALKALINE PHOSPHATASE 69 IU/L (46-116); ANION GAP 9 (8-16); ASPARTATE AMINO TRANSFERASE 20 U/L (10-37); BILIRUBIN,TOTAL 0.2 MG/DL (0.1-1.0); BLOOD UREA NITROGEN 19 MG/DL (7-18); CALCIUM 8.7 MG/DL (8.5-10.1); CHLORIDE 107 MMOL/L (99-107); CREATININE 1.19 MG/DL (0.40-0.90); GLUCOSE 79 MG/DL (70-104); MAGNESIUM 1.6 MG/DL (1.5-2.4); POTASSIUM 4.6 MMOL/L (3.5-5.1); SODIUM 142 MMOL/L (135-145); TOTAL CARBON DIOXIDE 26.5 MMOL/L (24-32); TOTAL PROTEIN 5.9 G/DL (6.4-8.2); eCRCL 40 ML/MIN; eGFR 45 ML/MIN
[2023-05-28] MEDS: lactose-reduced food (Ensure Enlive) - 237ml bottle PO SCH ×2 (08:00→13:22)
[2023-05-28] MEDS: aspirin 81mg, enteric-coated 1 TAB TABLET.DR PO SCH (08:35)
[2023-05-28] MEDS: docusate sod 100mg capsule PO SCH (08:35)
[2023-05-28] MEDS: levetiracetam 250mg tablet PO SCH (08:35)
[2023-05-28] MEDS: oxybutynin 5mg tablet PO SCH (08:35)
[2023-05-28] MEDS: heparin, porcine 5000 units/ml vial SQ SCH (08:36)
[2023-05-28] MEDS: atorvastatin 20mg tablet PO SCH (08:36)
[2023-05-28] MEDS: baclofen 10mg tablet PO SCH (08:36)
[2023-05-28] MEDS ORDERED: sertraline 50mg tablet PO ONE (13:25)
[2023-05-28] MEDS: magnesium hydroxide 30ml (MOM) UD suspension PO PRN (13:30)
[2023-05-29] MEDS ORDERED: sertraline 50mg tablet PO SCH (08:00)
== END 2023-05-28 16:30 | DRG 682 ==
LOC: ER 21:24 → ED HOLD 05-20 04:13 → ORTHO 4S 05-20 21:00
PROVIDERS: ADMIT Family Medicine; ATTEND Internal Medicine
PROC: CT131ZZ Planar Nuclear Medicine Imaging of Kidneys, Ureters and Bladder using Technetium 99m (Tc-99m) (ICD-10-PCS; 2023-05-21)
PROC: 4A00X4Z Measurement of Central Nervous Electrical Activity, External Approach (ICD-10-PCS; principal; 2023-05-23)
DX: N17.0 Acute kidney failure with tubular necrosis (principal); G93.41 Metabolic encephalopathy; N39.0 Urinary tract infection, site not specified; E87.1 Hypo-osmolality and hyponatremia; I13.0 Hypertensive heart and chronic kidney disease with heart failure and stage 1 through stage 4 chronic kidney disease, or unspecified chronic kidney disease; I50.32 Chronic diastolic (congestive) heart failure; E87.20 Acidosis, unspecified; I71.43 Infrarenal abdominal aortic aneurysm, without rupture; F41.9 Anxiety disorder, unspecified; B96.20 Unspecified Escherichia coli [E. coli] as the cause of diseases classified elsewhere; E78.00 Pure hypercholesterolemia, unspecified; R26.9 Unspecified abnormalities of gait and mobility; G40.909 Epilepsy, unspecified, not intractable, without status epilepticus; N26.1 Atrophy of kidney (terminal); I27.20 Pulmonary hypertension, unspecified; R00.1 Bradycardia, unspecified; F32.A Depression, unspecified; J44.9 Chronic obstructive pulmonary disease, unspecified; M10.9 Gout, unspecified; N18.9 Chronic kidney disease, unspecified; Z72.0 Tobacco use; Z88.0 Allergy status to penicillin; Z88.5 Allergy status to narcotic agent; Z90.49 Acquired absence of other specified parts of digestive tract; Z90.710 Acquired absence of both cervix and uterus; Z79.899 Other long term (current) drug therapy; Z79.82 Long term (current) use of aspirin
CPT/HCPCS: 36415; 36600; 70450; 70551; 71045; 71250; 74176; 76770; 78707; 80053; 80061; 80177; 80305; 81001; 82140; 82550; 82570; 82803; 82948; 83036; 83605; 83690; 83735; 83880; 84100; 84132; 84133; 84145; 84156; 84300; 84443; 84484; 84540; 85018; 85025; 85379; 85610; 85730; 87040; 87077; 87081; 87088; 87186; 93005; 94640; 94760; 94799; 95816; 97116; 97161; 97530; 99285; A4615; A6250; A6258; A9562; G0378; J0696; J1644; J1953; J2060; J3490; J7030; J7120